=== PATIENT | female | born 1995 | race African-American/Black ===

== ENCOUNTER 2023-10-16 15:28 | Emergency (ER) | payer OTHER ==
[2023-10-16 15:57] VITALS: BP 119/77; PULSE 86; RESP 19; TEMP 98.9; BMI 22.6
[2023-10-16] MEDS ORDERED: IBUPROFEN 400 MG TABLET (FP) PO ONE (16:23)
[2023-10-16] MEDS: IBUPROFEN 400 MG TABLET (FP) PO ONE (16:31)
[2023-10-16] MEDS: BENZONATATE 200 MG CAPSULE PO ONE (16:40)
== END 2023-10-16 16:43 | disposition home or self-care (01) ==
LOC: JER 15:28 → JERFT 15:28
DX: R05.9 Cough, unspecified (principal); R06.02 Shortness of breath; J06.9 Acute upper respiratory infection, unspecified
CPT/HCPCS: 99283-25